=== PATIENT | male | born 1980 | race Caucasian/White ===

== ENCOUNTER 2019-03-15 13:56 | Emergency (ER) | payer BC ==
[~2019-03-15] VITALS: Ht 170.2 cm; Wt 71.9 kg
[2019-03-15] MEDS ORDERED: ACETAMINOPHEN 325 MG TABLET PO ONE ×2 (14:26→15:00)
--- NOTE | 2019-03-15 14:43 | RAD ---
EXAM: Chest, 2 views. HISTORY: Fever. Cough. COMPARISON: None. FINDINGS: 2 views the chest are obtained. There is slight increased lingular opacity likely due to atelectasis or scarring. There is no consolidation, pleural effusion or pneumothorax. The heart is normal in size. IMPRESSION: Suspected lingular atelectasis or scarring. Electronically signed by: Tanisha Douglas MD (03/15/2019 2:39 PM) [place] [id number]
--- NOTE | 2019-03-15 14:48 | PHYS DOC ---
Past History Past Medical History: No Pertinent History Past Surgical History: Other Additional Past Surgical Histo: wisdom teeth removed Alcohol Use: Rarely Drug Use: None Adult General Chief Complaint Chief Complaint: FEVER HPI HPI 38-year-old male presents with fever. Patient started running a fever greater than 101 yesterday. His fever today was as high as 104. He is having chills. He has had a cough for several days. He did not take any antipyretics prior to coming the emergency room. His temperature on arrival was 103. The patient does not have body aches at this time, but a dull headache. His son was recently diagnosed with pneumonia. The patient other complaints at this time. Review of Systems Review of Systems Constitutional: Fever and chills[] Eyes: Denies change in visual acuity, redness, or eye pain [] HENT: Denies nasal congestion or sore throat [] Respiratory: Cough without shortness of breath [] Cardiovascular: No additional information not addressed in HPI [] GI: Denies abdominal pain, nausea, vomiting, bloody stools or diarrhea [] : Denies dysuria or hematuria [] Musculoskeletal: Denies back pain or joint pain [] Integument: Denies rash or skin lesions [] Neurologic: Denies headache, focal weakness or sensory changes [] Endocrine: Denies polyuria or polydipsia [] All other systems were reviewed and found to be within normal limits, except as documented in this note. Current Medications Current Medications Current Medications Medications (Trade) Dose Ordered Sig/Berry Start Time Stop Time Status Last Admin Dose Admin Acetaminophen (Tylenol) 325 mg STK-MED ONCE 03/15/19 14:26 03/15/19 14:26 DC Allergies Allergies Allergies Coded Allergies Type Severity Reaction Last Updated Verified No Known Drug Allergies 03/15/19 No Physical Exam Physical Exam Constitutional: Well developed, well nourished, no acute distress, non-toxic appearance. [] HENT: Normocephalic, atraumatic, bilateral external ears normal, oropharynx moist, no oral exudates, nose normal. [] Eyes: PERRLA, EOMI, conjunctiva normal, no discharge. [] Neck: Normal range of motion, no tenderness, supple, no stridor. [] Cardiovascular:Heart rate 110, regular rhythm, no murmur [] Lungs & Thorax: Bilateral breath sounds clear to auscultation [] Abdomen: Bowel sounds normal, soft, no tenderness, no masses, no pulsatile masses. [] Skin: Warm, dry, no erythema, no rash. [] Back: No tenderness, no CVA tenderness. [] Extremities: No tenderness, no cyanosis, no clubbing, ROM intact, no edema. [] Neurologic: Alert and oriented X 3, normal motor function, normal sensory function, no focal deficits noted. [] Psychologic: Affect normal, judgement normal, mood normal. [] Current Patient Data Vital Signs Vital Signs Date Time Temp Pulse Resp B/P (MAP) Pulse Ox O2 Delivery O2 Flow Rate FiO2 03/15/19 14:06 103.2 103 20 94 Room Air EKG EKG [] Radiology/Procedures Radiology/Procedures [] Impressions: EXAM: Chest, 2 views. HISTORY: Fever. Cough. COMPARISON: None. FINDINGS: 2 views the chest are obtained. There is slight increased lingular opacity likely due to atelectasis or scarring. There is no consolidation, pleural effusion or pneumothorax. The heart is normal in size. IMPRESSION: Suspected lingular atelectasis or scarring. Electronically signed by: Tanisha Doulgas MD (03/15/2019 2:39 PM) [facility] DICTATED AND SIGNED BY: TANISHA DOUGLAS MD DATE: 03/15/19 1439 CC: REYNOLD GREENE DO; DOROTHY DUONG ~ Course & Med Decision Making Course & Med Decision Making Pertinent Labs and Imaging studies reviewed. (See chart for details) The patient's official chest x-rays negative for pneumonia. I am suspicious about the lingula as well as an area of the left lower lobe. Influenza is pending. Rapid influenza is negative. My suspicion on chest x-ray as well as the patient's significant fever, I will go and treat him with azithromycin for 5 days. We'll give first 500 mg dose in the ED. His temperature has improved with antipyretics of Tylenol and Toradol. His labs are unremarkable. I believe he can be safely discharged at this time. If his condition worsens, he will return to the emergency room. [] Dragon Disclaimer Dragon Disclaimer This electronic medical record was generated, in whole or in part, using a voice recognition dictation system. Departure Departure: Impression: Primary Impression: Pneumonia Disposition: 01 HOME, SELF-CARE Condition: STABLE Referrals: DOROTHY DUONG (PCP) Patient Instructions: Pneumonia, Adult, [id number] Scripts Azithromycin (AZITHROMYCIN TABLET) 250 Mg Tablet 250 MG PO DAILY for ANTI-BIOTIC for 4 Days, #4 TAB 0 Refills Prov: REYNOLD GREENE DO 03/15/19 Problem Qualifiers Primary Impression: Pneumonia Pneumonia type: due to unspecified organism Laterality: right Lung location: lower lobe of lung Qualified Codes: J18.1 - Lobar pneumonia, unspecified organism REYNOLD GREENE DO Mar 15, 2019 14:48
[2019-03-15] MEDS ORDERED: IV NORMAL SALINE 1,000ML 1,000 ML IV ONE (15:15)
[2019-03-15 15:30] LABS: BASO % 1 % (0-3); EOS % 0 % (0-3); HEMATOCRIT 43.8 % (39.0-53.0); HEMOGLOBIN 15.1 g/dL (13.0-17.5); LYMPH # 0.6 x10^3/uL (1.0-4.8); LYMPH % 8 % (24-48); MEAN CORPUSCULAR HEMOGLOBIN 30 pg (25-35); MEAN CORPUSCULAR HGB CONC 34 g/dL (31-37); MEAN CORPUSCULAR VOLUME 88 fL (79-100); MONO # 0.4 x10^3/uL (0.0-1.1); MONO % 6 % (0-9); NEUT # 6.3 x10^3uL (1.8-7.7); NEUT % 85 % (31-73); PLATELET COUNT 147 x10^3/uL (140-400); RED CELL DISTRIBUTION WIDTH 13.5 % (11.5-14.5); WHITE BLOOD COUNT 7.4 x10^3/uL (4.0-11.0)
[2019-03-15 15:46] LABS: ALBUMIN 3.5 g/dL (3.4-5.0); ALBUMIN/GLOBULIN RATIO 1.2 (1.0-1.7); CALCIUM 8.3 mg/dL (8.5-10.1); CREATININE 1.4 mg/dL (0.7-1.3); TOTAL BILIRUBIN 1.5 mg/dL (0.2-1.0); TOTAL PROTEIN 6.5 g/dL (6.4-8.2)
[2019-03-15 15:52] LABS: INFLUENZA A PATIENT NEGATIVE (NEGATIVE); INFLUENZA B PATIENT NEGATIVE (NEGATIVE)
[2019-03-15] MEDS ORDERED: AZITHROMYCIN 250 MG TABLET. PO ONE (16:00)
[2019-03-15] MEDS ORDERED: KETOROLAC 30 MG/ML VIAL. IVP ONE (16:00)
[2019-03-15] MEDS ORDERED: AZIT250T6 PO (16:11)
[2019-03-15 16:21] VITALS: BP 131/66
== END 2019-03-15 16:20 | disposition home or self-care (01) ==
LOC: ER 13:56
DX: J18.1 Lobar pneumonia, unspecified organism (principal)
CPT/HCPCS: 36415; 71046; 80053; 83605; 85025; 87040; 87804; 96374; 99285; J0456; J1885; J7030